=== PATIENT | female | born 1955 | race African-American/Black ===

== ENCOUNTER → 2016-10-06 | Outpatient (CLI) | payer OTHER ==
[~2016-10-06] VITALS: Ht 167.6 cm; Wt 60.3 kg
[~2016-10-06] MED LIST: ACYCLOVIR 400400 MG PO; ALBUTEROL2.5 MG/0.5 INH; ALLOPURINOL 10100 M1 PO; AMITRIPTYLINE H25 M2 PO; ANTIVERT25 MG PO; ASPIR 8181 MG; ATIVAN0.5 MG PO; ATIVAN1 MG PO; BACTRIM DS TAB1 EACH PO; BISACODYL5 MG PO; COLACE100 MG PO; CYCLOBENZAPRINE5 MG PO; DELTA D3400 UNIT PO; DOXEPIN 10 MG C10 MG PO; FAMOTIDINE20 MG PO; FISH OIL 1,0001 EAC8 PO; FLEXERIL PO; HYDROXYCHLOROQ200 M1 PO; LACTULOSE20 GM/30 M PO; LEVAQUIN 500 M500 M2 PO; MAGNESIUM OXID400 MG PO; MAGOX 400400 MG PO; METAMUCIL PAC1 UDPKT PO; METHADONE HCL 110 M1 PO; MIRALAX17 GM PO; MULTI VITAMIN1 EACH PO; NEURONTIN 300300 M1 PO; NYSTATIN 1100000 U/M SWISH&SPIT; ONDANSETRON HCL4 M2 PO; PERCOCET 10-321 EACH PO; PERCOCET 5-3251 EACH PO; POTASSIUM20 PO; PREDNISONE 10 M10 M1; PREDNISONE 20 M20 MG PO; REVLIMID25 MG PO; ROXICODONE5 M2 PO; TESSALON PERLE100 MG PO; TRAMADOL 50 MG50 MG PO; TYLENOL325 MG PO; VITAMIN B-12500 MCG PO; VITAMIN E100 M1; ZOFRAN8 MG PO; [UNRECOGNIZED DRUG - MIXTURE] TOP; [UNRECOGNIZED DRUG - OTHER]; [UNRECOGNIZED DRUG - OTHER] MC
--- NOTE | ~2016-10-06 | HPC ---
[facility] [place] [address] PAIN MANAGEMENT CONSULTATION Name: OSCARCLINT D Room #: REG [facility].#: [id number] Admission: 10/06/16 Attend Phys: Vianey Johnson MD Discharge: Date of : 53 Report #: [id number] THIS REPORT FOR: //name// CC: [facility] physician/PCP Vianey Abdi MD DATE OF SERVICE: 10/06/2016 CHIEF COMPLAINT: "I have got shingles again for the second time now with persistant shooting, burning pain on my left side." FOLLOWUP HISTORY: The patient is a 60-year-old female who has been referred to the pain clinic for evaluation of left-sided chest wall pain, which she describes as a burning sensation similar to that which she experienced in the past when she was found to have had shingles the first time in 2014. She notes that the pain is quite problematic. She has pain, which she describes as burning, continuous, very problematic and stopped her from participate in activities of daily living. She has difficulty sleeping because of it. She is aware of this constant, nagging, shooting, burning lancinating pain all the time. She rates it between an 8/10. Today, she rates it as a 9/10. She has difficulty wearing clothing because of it is location in the left lateral back with radiation into the anterior midline of her chest wall. The patient has a history of multiple myeloma and has undergone chemotherapy. She also has a history of systemic lupus erythematosus. She has had some bone metastases for multiple myeloma. She has had some kidney injury as well. ALLERGIES: BENADRYL causes facial edema and OXYMETAZOLINE caused tongue swelling. CURRENT MEDICATIONS: Bactrim DS one tablet q.12 hours, potassium 20 mEq daily, oxycodone 5 mg tablets 1-2 q.6 hours p.r.n. pain, Zofran 8 mg t.i.d., magnesium 400 mg, Ativan 0.5 mg q.6 hours, Neurontin 300 mg 1 p.o. t.i.d., 600 mg in the morning, noon, and 900 mg at bedtime; Tessalon Perles 100 mg t.i.d. as needed for cough, multivitamins, B12, and acyclovir 400 mg. PAST MEDICAL HISTORY: Significant for multiple myeloma with chemotherapy, anemia, systemic lupus erythematosus, history of shingles in 2014, bone metastases for multiple myeloma, and kidney disease. SOCIAL HISTORY: Denies tobacco. Denies use of illicit drugs. REVIEW OF SYSTEMS: Questionnaire in the chart indicates generally good health [address] [address] PAIN MANAGEMENT CONSULTATION Name: CLINT MOORE Braeden Room #: REG [facility]#: [id number] Admission: 10/06/16 Attend Phys: Vianey Johnson MD Discharge: Date of : 53 Report #: [id number] at this juncture, otherwise unremarkable. The patient in remission. PAST SURGICAL HISTORY: None. SOCIAL HISTORY: She works as a contact specialist. She is working at this juncture. PHYSICAL EXAMINATION: Weight 60 kg, height 167 cm, BMI is 21, the patient's blood pressure 127/76, pulse 97, respiratory rate 14, room air saturations 100% saturation. The patient has pain and discomfort in the left thorasic dermatome T7 through T10. She notes hyperesthesia. She has increased pain with lancinating qualities, evidence of a healing rash in above dermatomal area. The patient has difficulty wearing her bra because of pain and discomfort with light touch in this area. She complains of burning, pain and discomfort. IMPRESSION: 1. 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 2. History of multiple myeloma. 3. History of systemic lupus erythematosus. 4. History of anemia. 5. Possible T10 compression fracture in the past. RECOMMENDATIONS: We discussed treatment options with the patient. Risks and benefits of an epidural injection with local anesthetic and steroid to help calm down this pain has been discussed. Risks and benefits of an epidural steroid injection were explained to the patient. She would like to proceed with this treatment course. We will contact her insurance company for precertification. After precertification, she will return to the pain clinic at which time she will be treated to help minimize her pain and discomfort. We would like to thank you for letting us participate in her care. We hope she continues to improve. The patient has been given a script for Elavil 25 mg 1 p.o. at bedtime, she will continue its use with gabapentin and a script for 10 mg morphine has been written. She will call us if she has any problems with her medications. The patient will also continue with the acyclovir 400 mg tablets. We would like to thank you for letting us participate in her care. <ELECTRONICALLY SIGNED> By: Vianey Johnson MD 10/09/16 0821 [id number] 19 Vianey Johnson MD /nt
[2016-10-06 09:15] VITALS: BP 127/76
== END ==
LOC: PAIN 05:44
DX: B02.9 Zoster without complications (principal); Z85.79 Personal history of other malignant neoplasms of lymphoid, hematopoietic and related tissues; M32.9 Systemic lupus erythematosus, unspecified; D64.9 Anemia, unspecified

== ENCOUNTER → 2016-10-16 | Outpatient (CLI) | payer OTHER ==
[~2016-10-16] VITALS: Ht 167.6 cm; Wt 60.7 kg
--- NOTE | ~2016-10-16 | HPC ---
[facility] [address] [place] [address] PAIN MANAGEMENT CONSULTATION Name: CLINT MOORE Braeden Room #: REG [facility]upe.#: [id number] Admission: 10/16/16 Attend Phys: Vianey Johnson MD Discharge: Date of : 53 Report #: [id number] THIS REPORT FOR: //name// CC: [facility] physician/PCP Vianey Abdi MD DATE OF SERVICE: 10/16/2016 PRIMARY CARE PHYSICIAN: The patient does not have a primary care physician. CHIEF COMPLAINT: Severe pain after herpes rash. FOLLOWUP HISTORY: The patient is a 60-year-old female who has been seen in the pain clinic because of pain and discomfort involving the left side. She has had shingles. She has had a painful discomfort involving her left side since that time. She has been experiencing shooting pains, burning pains and increased discomfort with light touch. She was given Elavil at the last visit. She feels that the Elavil medication caused her to have nightmares and she stopped taking it. Methadone was not very successful. This caused some GI upset with vomiting. She would like to proceed with the thoracic sympathectomy and injection. PHYSICAL EXAMINATION: The patient has pain and discomfort involving the left side with pain radiating down around into the midline area. She notes a shooting sensation, burning sensation and rates it as a 7/10 today. Blood pressure 132/75, pulse 94, respiratory rate 14, room air saturation is 96%. The patient has pain and discomfort in the above stated areas. IMPRESSION: 1. Postherpetic neuralgia. 2. History of multiple myeloma. 3. History of systemic lupus erythematosus. 4. History of anemia. 5. Possible T10 compression fracture in the past. RECOMMENDATION: We discussed the treatment options with the patient. Again, risks and benefits of an injection in the thoracic area covering the dermatomes which were involved with shingles was discussed. Possible complications were reviewed and the patient elects to proceed. PROCEDURE NOTE: The patient was placed in the sitting position. No fluoroscopy was used. Her back was sterilely prepped with a Betadine solution. At T10, 0.25% bupivacaine was infiltrated. A 17-gauge Tuohy with loss of resistance technique was used to gain access to the epidural space. There was no CSF, heme or paresthesia. A catheter was then placed approximately 3 [place] [address] PAIN MANAGEMENT CONSULTATION Name: OSCARCLINT Braeden Room #: REG [facility] Reddy#: [id number] Admission: 10/16/16 Attend Phys: Vianey Johnson MD Discharge: Date of : 53 Report #: [id number] was then placed in with the affected side down. A total of 2 mL of 0.25% bupivacaine was injected on 5 occasions. A total of 80 mg Depo-Medrol, 40 mg triamcinolone was injected as well. The patient remained in the pain clinic for an appropriate amount of time. She noted that her pain decreased from 7 to 0 at the time of discharge. There was no evidence of hypotension or any other untoward side effects. The patient will try doxepin 10 mg 1 p.o. at bedtime to help with sleep and pain as well given that she did not tolerate Elavil. She will call us in about a week. She will call us if she has any complaints or concerns. We would like to thank you for letting us participate in her care. We hope she continues to improve. <ELECTRONICALLY SIGNED> By: Vianey Johnson MD 11/10/16 1018 1503 07 Vianey Johnson MD /nt
[2016-10-16 10:44] VITALS: BP 142/89
== END ==
LOC: PAIN 07:04
DX: B02.29 Other postherpetic nervous system involvement (principal); B00.89 Other herpesviral infection; C90.00 Multiple myeloma not having achieved remission; M32.9 Systemic lupus erythematosus, unspecified

== ENCOUNTER → 2017-01-13 | Outpatient (CLI) | payer OTHER ==
[~2017-01-13] VITALS: Ht 165.1 cm; Wt 61.7 kg
[~2017-01-13] MED LIST changes: +DOXEPIN 10 MG C10 M1 PO
--- NOTE | ~2017-01-13 | HPC ---
[facility] [place] [address] PAIN MANAGEMENT CONSULTATION Name: MOORECLINT Braeden Room #: REG [facility]#: [id number] Admission: 01/13/17 Attend Phys: Vianey Johnson MD Discharge: Date of : 53 Report #: [id number] THIS REPORT FOR: //name// CC: [facility] physician/PCP Vianey Abdi MD DATE OF SERVICE: 01/13/2017 DATE OF SERVICE: 01/13/2017. PRIMARY PHYSICIAN: Jerry Abdi MD The patient has no family physician. FOLLOWUP COMPLAINT: The pain improved greater than 60% after the injection. Things have gone pretty well, but I do note some discomfort in the left side under my bra. FOLLOWUP HISTORY: The patient is a 61-year-old female who has been seen in the pain clinic because of shingles. She underwent a thoracic epidural steroid injection with local anesthetic and steroid at the last visit. She noticed a significant improvement in her pain, decreased burning, decreased discomfort with light touch. She feels that overall things have improved quite markedly. She still has pain and discomfort in the left side, which is somewhat problematic. She rates her pain as 8 when it is problematic. Overall, she is able to engage in activities of daily living and live a more normal life with less pain and discomfort since the last thoracic epidural injection, which provided sympathetectomy. PHYSICAL EXAMINATION: VITAL SIGNS: Blood pressure 127/83, room air saturation about 95%. Height 5 feet 8, BMI is 22, weight 61 kg. NEUROLOGIC: The patient has pain and discomfort in the T7 through 10 dermatome. She continues to experience some lancinating pain. There is no evidence of a rash at this point. She continues to have some difficulty wearing a bra because of the pain and discomfort and some light touch discomfort. She also continues to have some burning pain. IMPRESSION: 1. Shingles, improved greater than 50% after the last thoracic epidural steroid injection with local anesthetic and steroid. This involves the post-herpetic area of the left thoracic side of her body. 2. History of multiple myeloma. 3. History of systemic lupus erythematosus. 4. History of anemia. [facility] [address] [place] [address] PAIN MANAGEMENT CONSULTATION Name: CLINT MOORE Room #: REG [facility].#: [id number] Admission: 01/13/17 Attend Phys: Vianey Johnson MD Discharge: Date of : 53 Report #: [id number] 5. Probable T10 compression fracture in the past. RECOMMENDATIONS: We discussed treatment options with the patient. Overall, she feels that her life has improved as a result of the injection. She is not having the chronic lancinating and incapacitating pain she was experiencing prior to the injection. The recommendation is that we will proceed with another injection to help with her pain control. This will occur after precertification from her insurance company. She will try doxepin 10 mg 1 p.o. at bedtime to help with pain control. She will also continue with gabapentin. Overall, things have improved, and another epidural injection should prove beneficial. We would like to thank you for letting us participate in her care. We hope she continues to improve. <ELECTRONICALLY SIGNED> By: Vianey Johnson MD 01/15/17 0812 1339 [id number] Vianey Johnson MD /nt
[2017-01-13 08:12] VITALS: BP 127/83
== END ==
LOC: PAIN 06:59
DX: B02.8 Zoster with other complications (principal); Z85.79 Personal history of other malignant neoplasms of lymphoid, hematopoietic and related tissues; M32.9 Systemic lupus erythematosus, unspecified

== ENCOUNTER → 2017-01-20 | Outpatient (CLI) | payer OTHER ==
[~2017-01-20] VITALS: Ht 165.1 cm; Wt 63.5 kg
[~2017-01-20] MED LIST changes: +DOLOPHINE HCL10 MG PO
--- NOTE | ~2017-01-20 | HPC ---
[facility] [place] [address] PAIN MANAGEMENT CONSULTATION Name: OSCARCLINT D Room #: REG [facility].#: [id number] Admission: 01/20/17 Attend Phys: Vianey Johnson MD Discharge: Date of : 53 Report #: [id number] THIS REPORT FOR: //name// CC: [facility] physician/PCP Vianey Abdi MD DATE OF SERVICE: 01/20/2017 FOLLOWUP COMPLAINT: Pain is better since the last injection. FOLLOWUP HISTORY: The patient is a 61-year-old female who has been seen in the pain clinic because of continued pain as a result of postherpetic neuralgia. This area involves the left lateral chest wall and approximately, the T7 through T10 distribution. She found that the lancinating pain she was experiencing had improved. She feels that the pain is still problematic and would like to proceed with another injection today. She has returned for treatment. PHYSICAL EXAMINATION: Blood pressure 129/77, pulse 67, respiratory rate 16, room air saturation 97%. The patient has pain and discomfort in the left lateral chest wall area between T7 and T10. There is a well healed area of scarring in this area with some deep depigmentation. IMPRESSION: 1. Shingles, which have improved with a previous thoracic epidural injection with local anesthetic and steroid. 2. History of multiple myeloma status stable at this juncture. 3. History of systemic lupus. 4. History of anemia. 5. History of probable T10 compression fracture in the past. RECOMMENDATIONS: We discussed treatment options with the patient. Risks and benefits of the procedure were again reviewed. Possible complications were discussed. The patient elects to proceed. PROCEDURE NOTE: The patient was placed in the sitting position. The T7/T8 interspace was sterilely prepped. This area had been sterilely prepped with Betadine. A 17-gauge Tuohy with loss of resistance technique was used to gain access to the epidural space. A catheter was then advanced in 3 cm. After testing, catheter appeared to be in the appropriate place. The catheter was then taped to the patient's side and she was placed in the left lateral decubitus position. Total of 2 mL 0.5% bupivacaine was injected. This was followed by an additional 5 mL 0.25% bupivacaine and about 3 minutes later, an additional 5 mL 0.25% bupivacaine. The patient was taken to the room where she remained in the left lateral decubitus position for an appropriate amount of time. Her pain decreased from 7 to 0. She [place] [address] PAIN MANAGEMENT CONSULTATION Name: CLINT MOORE Room #: REG [facility]#: [id number] Admission: 01/20/17 Attend Phys: Vianey Johnson MD Discharge: Date of : 53 Report #: [id number] contralateral arm and leg. She can move both arm and leg, but did have some sensation of slight numbness and tingling on the right side. This resolved after the patient was here in the pain clinic for about an hour. After total resolution of her problem with numbness, without weakness or perception of weakness, the patient was discharged. A script for methadone 10 mg 1 p.o. q. day has been written. The patient will call us if she has any problems with her medications. We would like to thank you for letting us participate in her care. We hope she continues to improve. By: [id number] Vianey Johnson MD /nt
[2017-01-20 08:13] VITALS: BP 129/77
== END ==
LOC: PAIN 06:42
DX: B02.29 Other postherpetic nervous system involvement (principal); M32.9 Systemic lupus erythematosus, unspecified; C90.00 Multiple myeloma not having achieved remission

== ENCOUNTER → 2017-03-17 | Outpatient (CLI) | payer OTHER ==
[~2017-03-17] VITALS: Ht 165.1 cm; Wt 59.6 kg
[~2017-03-17] MED LIST changes: +LIDODERM 5%1 PATC1 TRANSDERM; +PAMELOR10 MG PO
--- NOTE | ~2017-03-17 | HPC ---
[facility] [address] [address] PAIN MANAGEMENT CONSULTATION Name: OSCARCLINT D Room #: REG [facility]upe.#: [id number] Admission: 03/17/17 Attend Phys: Vianey Johnson MD Discharge: Date of : 53 Report #: [id number] THIS REPORT FOR: //name// CC: [facility] physician/PCP Vianey Abdi MD PRIMARY CARE PHYSICIAN: Jerry Abdi M.D. FOLLOWUP COMPLAINT: The pain is worse again. I am still having pain in the side wall and back. FOLLOWUP HISTORY: The patient is a 61-year-old female who has been seen in the pain clinic because of postherpetic neuralgia. She has undergone injections in the thoracic area and gleaned benefits from these. At this juncture, she is noticing a worsening of her pain and discomfort. She is anticipating returning to work in the near future. She has been able to work at home. When pain was quite problematic, she could rest. Now that she is going to have to go back into her work environment, she feels that things might be more problematic. She would like to have her medications adjusted to help accommodate this new reality. PHYSICAL EXAMINATION: The patient is alert, complains of pain and discomfort in the left chest wall area underneath the breast radiating down into her back. She does use Lidoderm patches placed q. 12 hours. She rates her pain as a 9-10 today. She describes it as a numb pain. The pain is in the area of the T10/T7 distribution. IMPRESSION: 1. Shingles improved after thoracic epidural injections with local anesthetic and steroid, but has increased again. 2. History of multiple myeloma status post bone marrow transplant. 3. History of systemic lupus. 4. History of anemia. 5. History of probable T10 compression fracture in the past. RECOMMENDATIONS: We discussed treatment options with the patient. We will try Pamelor 10 mg 1 p.o. every day and increase her gabapentin from 600 at bedtime to 900 at bedtime. This will give her a dosing of 600-600-900. She will call us if she has any problems with her medications. We would like to thank you for letting us participate in her care. We hope she continues to improve. <ELECTRONICALLY SIGNED> By: Vianey Johnson MD 03/18/17 0820 [id number] [id number] Vianey Johnson MD /nt
[2017-03-17 08:24] VITALS: BP 138/90
== END ==
LOC: PAIN 06:36
DX: M54.89 Other dorsalgia (principal); B02.8 Zoster with other complications; Z85.89 Personal history of malignant neoplasm of other organs and systems; D64.89 Other specified anemias; D69.6 Thrombocytopenia, unspecified